=== PATIENT | female | born 1950 | race African-American/Black ===

== ENCOUNTER 2018-11-20 05:23 | Emergency (ER) | payer MEDICARE, MEDICAID ==
[~2018-11-20] VITALS: Ht 172.7 cm; Wt 44.0 kg
[2018-11-20 12:15] LABS: HEMATOCRIT. 44.1 % (36.0-48.0); HEMOGLOBIN. 14.6 g/dL (12.0-16.0); MEAN CORPUSCULAR HEMOGLOBIN 30.5 pg (28.0-32.0); MEAN CORPUSCULAR VOLUME 92.1 fL (81.0-99.0); MEAN PLATELET VOLUME 7.4 fl (7.4-10.4); PLATELET 510 x1000/uL (130-400); RED BLOOD CELL COUNT 4.79 mill/uL (4.2-5.4)
[2018-11-20 12:21] LABS: CHLORIDE 105 mEq/L (98-107)
[2018-11-20 12:22] LABS: PROTHROMBIN TIME 10.5 sec (9.1-11.1)
[2018-11-20 13:09] LABS: PLATELET ESTIMATE INCREASED
[2018-11-20 13:27] LABS: CLARITY URINE CLEAR (CLEAR); COLOR URINE DARK YELLOW (YELLOW); KETONES URINE TRACE (NEGATIVE); LEUKOCYTE ESTERASE URINE TRACE (NEGATIVE); NITRITE URINE NEGATIVE (NEGATIVE); OCCULT BLOOD URINE NEGATIVE (NEGATIVE); PROTEIN URINE TRACE (NEGATIVE); SPECIFIC GRAVITY URINE 1.026 (1.005-1.030)
[2018-11-20 14:05] LABS: CANNABINOID URINE SCREEN NEGATIVE (NEGATIVE); OPIATES URINE SCREEN NEGATIVE (NEGATIVE); PHENCYCLIDINE URINE SCREEN NEGATIVE (NEGATIVE)
[2018-11-20 14:07] LABS: *AMPHETAMINES SCREEN URINE NEGATIVE (NEGATIVE); *BARBITURATES SCREEN URINE NEGATIVE (NEGATIVE)
[2018-11-20 14:08] LABS: *BENZODIAZEPINES SCREEN URINE NEGATIVE (NEGATIVE)
[2018-11-20 14:09] LABS: *COCAINE SCREEN URINE NEGATIVE (NEGATIVE)
[2018-11-20 14:10] LABS: METHADONE URINE SCREEN NEGATIVE (NEGATIVE)
[2018-11-20 14:22] VITALS: BP 138/89
== END 2018-11-20 14:42 | disposition home or self-care (01) ==
LOC: ER 05:23
DX: R91.8 Other nonspecific abnormal finding of lung field (principal); R53.1 Weakness
CPT/HCPCS: 36415; 71045; 80053; 80305; 81003; 85025; 85610; 87086; 93005; 99284; G0482

== ENCOUNTER 2018-11-28 15:47 | Inpatient (IN) | payer MEDICARE, OTHER ==
[~2018-11-28] VITALS: Ht 172.7 cm; Wt 40.8 kg
[2018-11-28] VITALS (11 sets, daily range): BP systolic 119–154; BP diastolic 53–84
[2018-11-28] MEDS ORDERED: SODIUM CHLORIDE 0.9% 1,000 ML IV ONE (16:00)
[2018-11-28 16:59] LABS: HEMATOCRIT. 42.2 % (36.0-48.0); HEMOGLOBIN. 14.1 g/dL (12.0-16.0); MEAN CORPUSCULAR HEMOGLOBIN 30.5 pg (28.0-32.0); MEAN CORPUSCULAR VOLUME 91.1 fL (81.0-99.0); MEAN PLATELET VOLUME 7.4 fl (7.4-10.4); PLATELET 488 x1000/uL (130-400); RED BLOOD CELL COUNT 4.63 mill/uL (4.2-5.4); RED CELL DISTRIBUTION WIDTH 14.5 % (11.6-14.6)
[2018-11-28] MEDS ORDERED: LEVETIRACETAM 500MG PREMIX 100 ML IV ONE (17:00)
[2018-11-28] MEDS ORDERED: DEXAMETHASONE 10 MG/ML VIAL IV ONE (17:00)
[2018-11-28 17:05] LABS: CHLORIDE 103 mEq/L (98-107)
[2018-11-28 17:09] LABS: INR 1.1; PARTIAL THROMBOPLASTIN TIME 29.2 sec (23.4-31.0); PROTHROMBIN TIME 10.6 sec (9.1-11.1)
[2018-11-28 17:10] LABS: ETHANOL BLOOD < 10 mg/dL
[2018-11-28 17:14] LABS: CREATINE KINASE 44 IU/L (26-192)
[2018-11-28 17:45] LABS: *AMPHETAMINES SCREEN URINE NEGATIVE (NEGATIVE); *BARBITURATES SCREEN URINE NEGATIVE (NEGATIVE); *BENZODIAZEPINES SCREEN URINE NEGATIVE (NEGATIVE); *COCAINE SCREEN URINE NEGATIVE (NEGATIVE); METHADONE URINE SCREEN NEGATIVE (NEGATIVE)
[2018-11-28 17:46] LABS: CANNABINOID URINE SCREEN NEGATIVE (NEGATIVE); OPIATES URINE SCREEN NEGATIVE (NEGATIVE); PHENCYCLIDINE URINE SCREEN NEGATIVE (NEGATIVE)
[2018-11-28 19:52] LABS: PLATELET ESTIMATE INCREASED
[2018-11-28] MEDS ORDERED: NICARDIPINE 100 MG in SODIUM CHLORIDE 0.9% 60 ML IV PRN (20:30)
[2018-11-28] MEDS: DEXT 5%/LACTATED RINGERS 1,000 ML IV SCH (20:40)
[2018-11-28] MEDS: NICARDIPINE 100 MG in SODIUM CHLORIDE 0.9% 60 ML IV PRN (21:47)
[2018-11-28] MEDS: DEXAMETHASONE 4MG/ML 1ML VIAL IV SCH (23:27)
[2018-11-28] MEDS: LEVETIRACETAM 500 MG in SODIUM CHLORIDE 0.9% 100 ML IV SCH (23:27)
[2018-11-29] VITALS (62 sets, daily range): BP systolic 103–161; BP diastolic 42–111
[2018-11-29] MEDS: DEXAMETHASONE 4MG/ML 1ML VIAL IV SCH ×4 (05:26→23:56)
[2018-11-29] MEDS: NICARDIPINE 100 MG in SODIUM CHLORIDE 0.9% 60 ML IV PRN (07:30)
[2018-11-29] MEDS: LEVETIRACETAM 500 MG in SODIUM CHLORIDE 0.9% 100 ML IV SCH ×2 (08:30→20:26)
[2018-11-29] MEDS: FAMOTIDINE 20MG/2ML VIAL IV SCH ×2 (08:31→20:26)
[2018-11-29] MEDS: MORPHINE SULFATE 4 MG/ML CPJ (NOT FOR IM USE) IV PRN ×4 (08:32→20:03)
[2018-11-29] MEDS: RISPERIDONE 0.5MG TABLET PO SCH ×2 (09:00→16:21)
[2018-11-29] MEDS ORDERED: PIPERACILLIN/TAZOBACTAM 3.375GM/50ML PREMIX IV SCH (12:15)
[2018-11-29] MEDS: DEXT 5%/LACTATED RINGERS 1,000 ML IV SCH (13:10)
[2018-11-29] MEDS: PIPERACILLIN/TAZ 3.375G PREMIX 50 ML IV SCH ×2 (13:51→21:27)
[2018-11-29] MEDS ORDERED: KCL 20MEQ/100ML PREMIX 100 ML IV NR (16:30)
[2018-11-29] MEDS ORDERED: LEVETIRACETAM 500 MG in SODIUM CHLORIDE 0.9% 100 ML IV SCH (21:00)
[2018-11-30] VITALS (11 sets, daily range): BP systolic 102–166; BP diastolic 40–91
[2018-11-30] MEDS: LORAZEPAM 2MG/ML CPJ IV PRN ×2 (00:17→23:37)
[2018-11-30] MEDS: DEXAMETHASONE 4MG/ML 1ML VIAL IV SCH ×4 (05:40→23:55)
[2018-11-30] MEDS: PIPERACILLIN/TAZ 3.375G PREMIX 50 ML IV SCH ×2 (05:40→15:31)
[2018-11-30 05:50] LABS: BASOPHILS % 0.4 % (0.0-2.0); HEMATOCRIT. 40.3 % (36.0-48.0); HEMOGLOBIN. 13.2 g/dL (12.0-16.0); LYMPHOCYTES % 7.7 % (20.0-50.0); MEAN CORPUSCULAR VOLUME 91.4 fL (81.0-99.0); MEAN PLATELET VOLUME 7.6 fl (7.4-10.4); MONOCYTES % 5.5 % (2.0-8.0); NEUTROPHILS % 86.4 % (40.0-76.0); PLATELET 416 x1000/uL (130-400); RED BLOOD CELL COUNT 4.41 mill/uL (4.2-5.4); RED CELL DISTRIBUTION WIDTH 14.3 % (11.6-14.6)
[2018-11-30 05:53] LABS: CHLORIDE 108 mEq/L (98-107)
[2018-11-30] MEDS: RISPERIDONE 0.5MG TABLET PO SCH ×2 (09:00→17:00)
[2018-11-30] MEDS: LEVETIRACETAM 500 MG in SODIUM CHLORIDE 0.9% 100 ML IV SCH (09:48)
[2018-11-30] MEDS: FAMOTIDINE 20MG/2ML VIAL IV SCH ×2 (09:50→22:57)
[2018-11-30] MEDS: DEXT 5%/LACTATED RINGERS 1,000 ML IV SCH (22:57)
[2018-11-30] MEDS: MORPHINE SULFATE 4 MG/ML CPJ (NOT FOR IM USE) IV PRN (23:37)
[2018-12-01] VITALS: BP 165/81
[2018-12-01] MEDS ORDERED: PIPERACILLIN/TAZ 3.375G PREMIX 50 ML IV SCH
[2018-12-01] MEDS: LEVETIRACETAM 500 MG in SODIUM CHLORIDE 0.9% 100 ML IV SCH ×3 (03:25→21:15)
[2018-12-01 04:00] VITALS: BP 167/97
[2018-12-01] MEDS: DEXAMETHASONE 4MG/ML 1ML VIAL IV SCH ×3 (07:50→17:42)
[2018-12-01 08:00] VITALS: BP 132/92
[2018-12-01] MEDS: FAMOTIDINE 20MG/2ML VIAL IV SCH ×2 (08:56→21:16)
[2018-12-01] MEDS: RISPERIDONE 0.5MG TABLET PO SCH ×3 (08:56→16:05)
[2018-12-01] MEDS: LORAZEPAM 2MG/ML CPJ IV PRN ×2 (09:41→17:47)
[2018-12-01] MEDS: MORPHINE SULFATE 4 MG/ML CPJ (NOT FOR IM USE) IV PRN (11:39)
[2018-12-01 11:48] VITALS: BP 163/98
[2018-12-01] MEDS: AMLODIPINE 10MG TABLET PO SCH (12:45)
[2018-12-01 13:27] LABS: HEMATOCRIT. 41.2 % (36.0-48.0); HEMOGLOBIN. 13.7 g/dL (12.0-16.0); MEAN CORPUSCULAR HEMOGLOBIN 29.9 pg (28.0-32.0); MEAN CORPUSCULAR VOLUME 90.2 fL (81.0-99.0); PLATELET 532 x1000/uL (130-400); RED BLOOD CELL COUNT 4.57 mill/uL (4.2-5.4); RED CELL DISTRIBUTION WIDTH 14.5 % (11.6-14.6)
[2018-12-01 14:02] LABS: PLATELET ESTIMATE INCREASED
[2018-12-01 16:00] VITALS: BP 138/88
[2018-12-01] MEDS: DEXT 5%/LACTATED RINGERS 1,000 ML IV SCH (16:05)
[2018-12-01] MEDS: LEVOFLOXACIN 500MG PREMIX 100 ML IV SCH (17:48)
[2018-12-01] MEDS ORDERED: IOHEXOL-350 100 ML BOTTLE ONE (19:55)
[2018-12-01 20:00] VITALS: BP 144/88
[2018-12-02] VITALS: BP 137/82
[2018-12-02] MEDS: DEXAMETHASONE 4MG/ML 1ML VIAL IV SCH ×4 (01:00→17:10)
[2018-12-02] MEDS: DEXT 5%/LACTATED RINGERS 1,000 ML IV SCH (01:01)
[2018-12-02] MEDS: LORAZEPAM 2MG/ML CPJ IV PRN ×2 (04:54→10:37)
[2018-12-02 08:00] VITALS: BP 171/117
[2018-12-02] MEDS: RISPERIDONE 0.5MG TABLET PO SCH ×2 (09:00→17:00)
[2018-12-02] MEDS: AMLODIPINE 10MG TABLET PO SCH (09:03)
[2018-12-02] MEDS: FAMOTIDINE 20MG/2ML VIAL IV SCH ×2 (09:03→21:41)
[2018-12-02] MEDS: LEVETIRACETAM 500 MG in SODIUM CHLORIDE 0.9% 100 ML IV SCH ×2 (09:06→21:28)
[2018-12-02] MEDS ORDERED: HYDRALAZINE 10 MG in SODIUM CHLORIDE 0.9% 49.5 ML IV PRN (11:00)
[2018-12-02] MEDS ORDERED: HYDRALAZINE 20MG/ML VIAL IV PRN (11:00)
[2018-12-02 11:19] LABS: HEMATOCRIT. 43.1 % (36.0-48.0); HEMOGLOBIN. 14.5 g/dL (12.0-16.0); MEAN CORPUSCULAR VOLUME 89.2 fL (81.0-99.0); MEAN PLATELET VOLUME 7.7 fl (7.4-10.4); PLATELET 542 x1000/uL (130-400); RED BLOOD CELL COUNT 4.83 mill/uL (4.2-5.4); RED CELL DISTRIBUTION WIDTH 14.4 % (11.6-14.6)
[2018-12-02 11:23] LABS: CHLORIDE 101 mEq/L (98-107)
[2018-12-02 11:56] VITALS: BP 165/83
[2018-12-02 15:05] LABS: BG BASE EXCESS 3.4 mmol/L (-2.0-2.0); BG CARBOXYHEMOGLOBIN 0.4 % (0.5-1.5); BG DEOXYHEMOGLOBIN 2.5 % (0.0-5.0); BG FRACTION INSPIRED OXYGEN 21; BG HCO3 ACT 26.6 mmol/L (22.0-26.0); BG METHEMOGLOBIN 0.4 % (0.0-1.5); BG OXYGEN SATURATION 97.5 % (92.0-98.5); BG OXYHEMOGLOBIN 96.7 % (94.0-97.0); BG PH 7.486 (7.350-7.450); BG PO2 94.6 mmHg (75.0-100.0); BG SAMPLE SITE LEFT RADIAL; BG VENT MODE ROOM AIR
[2018-12-02 16:00] VITALS: BP 129/84
[2018-12-02] MEDS ORDERED: IPRATROPIUM/ALBUTEROL 0.5-3(2.5)MG/3ML NEB HHN PRN (16:45)
[2018-12-02] MEDS ORDERED: BISACODYL 10MG SUPP PR NR (17:00)
[2018-12-02 17:01] LABS: PLATELET ESTIMATE INCREASED
[2018-12-02] MEDS ORDERED: POTASSIUM CHLORIDE INJ 40 MEQ in DEXT 5% WATER 500 ML IV NR (18:00)
[2018-12-02] MEDS: PIPERACILLIN/TAZ 3.375G PREMIX 50 ML IV SCH (18:12)
[2018-12-02] MEDS ORDERED: LORAZEPAM 2MG/ML CPJ IV PRN (18:15)
[2018-12-02 20:00] VITALS: BP 169/107
[2018-12-03] VITALS: BP 146/101
[2018-12-03] MEDS: PIPERACILLIN/TAZ 3.375G PREMIX 50 ML IV SCH ×3 (00:44→11:36)
[2018-12-03] MEDS: DEXAMETHASONE 4MG/ML 1ML VIAL IV SCH ×4 (00:44→17:30)
[2018-12-03 04:00] VITALS: BP 150/93
[2018-12-03 08:00] VITALS: BP 124/80
[2018-12-03] MEDS: MULTIVITAMINS,THER W-MINERALS TABLET PO SCH (09:00)
[2018-12-03] MEDS: AMLODIPINE 10MG TABLET PO SCH (09:00)
[2018-12-03] MEDS: RISPERIDONE 0.5MG TABLET PO SCH ×2 (09:00→17:29)
[2018-12-03] MEDS: FOLIC ACID 1MG TABLET PO SCH (09:00)
[2018-12-03] MEDS: THIAMINE HCL 100MG TABLET PO SCH (09:00)
[2018-12-03] MEDS: FAMOTIDINE 20MG/2ML VIAL IV SCH ×2 (09:03→22:29)
[2018-12-03] MEDS: LEVETIRACETAM 500 MG in SODIUM CHLORIDE 0.9% 100 ML IV SCH ×2 (09:07→22:30)
[2018-12-03] MEDS: DEXT 5%/LACTATED RINGERS 1,000 ML IV SCH ×2 (09:07→17:30)
[2018-12-03 09:46] LABS: HEMATOCRIT 43.1 % (36.0-48.0); HEMOGLOBIN 14.5 g/dL (12.0-16.0); MEAN CORPUSCULAR HEMOGLOBIN 30.4 pg (28.0-32.0); PLATELET 531 x1000/uL (130-400); RED BLOOD CELL COUNT 4.79 mill/uL (4.2-5.4); RED CELL DISTRIBUTION WIDTH 14.5 % (11.6-14.6)
[2018-12-03 09:56] LABS: CHLORIDE 102 mEq/L (98-107)
[2018-12-03 12:00] VITALS: BP 132/85
[2018-12-03 16:00] VITALS: BP 117/72
[2018-12-03] MEDS: LEVOFLOXACIN 500MG PREMIX 100 ML IV SCH (17:29)
[2018-12-03 20:23] LABS: CLARITY URINE CLEAR (CLEAR); KETONES URINE NEGATIVE (NEGATIVE); LEUKOCYTE ESTERASE URINE NEGATIVE (NEGATIVE); NITRITE URINE NEGATIVE (NEGATIVE); OCCULT BLOOD URINE NEGATIVE (NEGATIVE); PROTEIN URINE NEGATIVE (NEGATIVE); SPECIFIC GRAVITY URINE 1.002 (1.005-1.030); UROBILINOGEN URINE 0.2 E.U./dL (0.2-1.0)
[2018-12-03 20:31] LABS: COLOR URINE PALE YELLOW (YELLOW)
[2018-12-04] VITALS: BP 147/82
[2018-12-04] MEDS: DEXAMETHASONE 4MG/ML 1ML VIAL IV SCH ×3 (00:51→11:30)
[2018-12-04 04:00] VITALS: BP 154/86
[2018-12-04 08:00] VITALS: BP 148/93
[2018-12-04] MEDS: MULTIVITAMINS,THER W-MINERALS TABLET PO SCH (09:19)
[2018-12-04] MEDS: AMLODIPINE 10MG TABLET PO SCH (09:19)
[2018-12-04] MEDS: FAMOTIDINE 20MG/2ML VIAL IV SCH (09:19)
[2018-12-04] MEDS: LEVETIRACETAM 500 MG in SODIUM CHLORIDE 0.9% 100 ML IV SCH (09:19)
[2018-12-04] MEDS: THIAMINE HCL 100MG TABLET PO SCH (09:19)
[2018-12-04] MEDS: FOLIC ACID 1MG TABLET PO SCH (09:19)
[2018-12-04] MEDS: RISPERIDONE 0.5MG TABLET PO SCH ×2 (09:19→16:44)
[2018-12-04] MEDS: DEXT 5%/LACTATED RINGERS 1,000 ML IV SCH (09:20)
[2018-12-04 12:00] VITALS: BP 124/73
[2018-12-04 12:39] VITALS: BP 132/82
[2018-12-04 16:00] VITALS: BP_SYST 141; BP_DIAS 80; BP_DIAS 90
[2018-12-05] MEDS ORDERED: DEXAMETHASONE 4MG/ML 1ML VIAL IV SCH
== END 2018-12-04 17:18 | DRG 54 ==
LOC: ER 15:47 → MICUSO 17:19 → EDBEDREQSVC 17:22 → EDBEDREQ 17:22 → EDBEDREQTM 17:22 → ENRESERV 18:41 → 6EST 11-30 06:40
PROVIDERS: ADMIT Internal Medicine; ATTEND Internal Medicine
DX: C79.31 Secondary malignant neoplasm of brain (principal); G93.6 Cerebral edema; J44.1 Chronic obstructive pulmonary disease with (acute) exacerbation; G93.40 Encephalopathy, unspecified; N39.0 Urinary tract infection, site not specified; C34.90 Malignant neoplasm of unspecified part of unspecified bronchus or lung; D68.59 Other primary thrombophilia; F10.20 Alcohol dependence, uncomplicated; R26.2 Difficulty in walking, not elsewhere classified; E87.6 Hypokalemia; E86.0 Dehydration; R79.89 Other specified abnormal findings of blood chemistry; R59.0 Localized enlarged lymph nodes; K59.00 Constipation, unspecified; B96.4 Proteus (mirabilis) (morganii) as the cause of diseases classified elsewhere; F17.200 Nicotine dependence, unspecified, uncomplicated; I10 Essential (primary) hypertension; R62.7 Adult failure to thrive; Z82.49 Family history of ischemic heart disease and other diseases of the circulatory system; Z86.73 Personal history of transient ischemic attack (TIA), and cerebral infarction without residual deficits; Z71.6 Tobacco abuse counseling; Z78.1 Physical restraint status
CPT/HCPCS: 36415; 36600; 71045; 71260; 74177; 80048; 80305; 82140; 82375; 82550; 82805; 83605; 83880; 84484; 85027; 87077; 87186; 92610; 93005; 93970; 96361; 96365; 96375; 97116; 97163; 97530; 99285; 99406; C1893; J0360; J1100; J1953; J1956; J2060; J2270; J2543; J3480; J3490; J7030; J7050; J7060; Q9967; A4315

== ENCOUNTER 2019-01-11 05:41 | Inpatient (IN) | payer MEDICARE, OTHER ==
[~2019-01-11] VITALS: Ht 170.2 cm; Wt 47.7 kg
[2019-01-11 06:23] LABS: BG BASE EXCESS -2.2 mmol/L (-2.0-2.0); BG BILEVEL POS AIRWAY PRESSURE 15/5; BG CARBOXYHEMOGLOBIN 0.5 % (0.5-1.5); BG DEOXYHEMOGLOBIN 0.5 % (0.0-5.0); BG FRACTION INSPIRED OXYGEN 100; BG HCO3 ACT 22.6 mmol/L (22.0-26.0); BG METHEMOGLOBIN 0.4 % (0.0-1.5); BG OXYGEN SATURATION 99.5 % (92.0-98.5); BG OXYHEMOGLOBIN 98.6 % (94.0-97.0); BG PCO2 39.2 mmHg (35.0-45.0); BG PH 7.379 (7.350-7.450); BG PO2 470.2 mmHg (75.0-100.0); BG SAMPLE SITE RIGHT BRACHIAL; BG TOTAL HEMOGLOBIN 13.3 g/dL (12.0-18.0); BG VENT MODE MASK - BIPAP; BG VENT RATE 14 set
[2019-01-11] MEDS ORDERED: CEFTRIAXONE 1 G PREMIX 50 ML IV ONE (06:30)
[2019-01-11] MEDS ORDERED: AZITHROMYCIN 500 MG in DEXT 5% WATER 250 ML IV ONE (06:30)
[2019-01-11 06:41] LABS: BASOPHILS % 0.6 % (0.0-2.0); EOSINOPHILS % 0.6 % (0.0-5.0); HEMATOCRIT. 35.3 % (36.0-48.0); HEMOGLOBIN. 11.6 g/dL (12.0-16.0); LYMPHOCYTES % 14.2 % (20.0-50.0); MEAN CORPUSCULAR HEMOGLOBIN 28.9 pg (28.0-32.0); MEAN CORPUSCULAR VOLUME 88.1 fL (81.0-99.0); MEAN PLATELET VOLUME 6.7 fl (7.4-10.4); MONOCYTES % 7.4 % (2.0-8.0); NEUTROPHILS % 77.2 % (40.0-76.0); PLATELET 552 x1000/uL (130-400); RED CELL DISTRIBUTION WIDTH 14.2 % (11.6-14.6)
[2019-01-11 06:44] LABS: CHLORIDE 105 mEq/L (98-107)
[2019-01-11 06:45] LABS: INR 1.1; PROTHROMBIN TIME 10.9 sec (9.1-11.1)
[2019-01-11] MEDS ORDERED: SODIUM CHLORIDE 0.9% 1000ML BAG (SEPSIS BOLUS) IV ONE (07:00)
[2019-01-11 08:27] LABS: CLARITY URINE CLOUDY (CLEAR); COLOR URINE YELLOW (YELLOW); KETONES URINE NEGATIVE (NEGATIVE); LEUKOCYTE ESTERASE URINE NEGATIVE (NEGATIVE); NITRITE URINE NEGATIVE (NEGATIVE); OCCULT BLOOD URINE 1+ (NEGATIVE); PH URINE 5.5 (4.5-8.0); PROTEIN URINE TRACE (NEGATIVE); SPECIFIC GRAVITY URINE 1.026 (1.005-1.030)
[2019-01-11] MEDS ORDERED: ACETAMINOPHEN 650MG SUPP PR ONE (11:45)
[2019-01-11] MEDS ORDERED: IOHEXOL-350 100 ML BOTTLE ONE (11:49)
[2019-01-11] MEDS ORDERED: DEXTROSE 50% WATER 50ML SYRINGE IV PRN (21:45)
[2019-01-11] MEDS ORDERED: IPRATROPIUM/ALBUTEROL 0.5-3(2.5)MG/3ML NEB HHN PRN (21:45)
[2019-01-11] MEDS ORDERED: ACETAMINOPHEN 650MG SUPP PR PRN (21:45)
[2019-01-11] MEDS ORDERED: ONDANSETRON HCL 4MG/2ML INJ IV PRN (21:45)
[2019-01-11] MEDS ORDERED: LEVOFLOXACIN 500MG PREMIX 100 ML IV SCH (21:45)
[2019-01-12 04:26] LABS: BASOPHILS % 0.5 % (0.0-2.0); EOSINOPHILS % 0.3 % (0.0-5.0); HEMATOCRIT. 30.9 % (36.0-48.0); HEMOGLOBIN. 10.2 g/dL (12.0-16.0); LYMPHOCYTES % 9.7 % (20.0-50.0); MEAN CORPUSCULAR VOLUME 88.3 fL (81.0-99.0); MEAN PLATELET VOLUME 6.9 fl (7.4-10.4); MONOCYTES % 6.8 % (2.0-8.0); NEUTROPHILS % 82.7 % (40.0-76.0); PLATELET 444 x1000/uL (130-400)
[2019-01-12 04:33] LABS: CHLORIDE 106 mEq/L (98-107)
[2019-01-12 04:41] LABS: PHOSPHORUS 3.4 mg/dL (2.5-4.9)
[2019-01-12] MEDS ORDERED: INSULIN LISPRO 100 UNITS/ML SUBCUT SCH (08:20)
[2019-01-12] MEDS: PANTOPRAZOLE SODIUM 40 MG/VIAL IV SCH (09:00)
[2019-01-12 14:37] LABS: *COCAINE SCREEN URINE NEGATIVE (NEGATIVE); METHADONE URINE SCREEN NEGATIVE (NEGATIVE); OPIATES URINE SCREEN NEGATIVE (NEGATIVE)
[2019-01-12 14:38] LABS: *AMPHETAMINES SCREEN URINE NEGATIVE (NEGATIVE); *BARBITURATES SCREEN URINE NEGATIVE (NEGATIVE); *BENZODIAZEPINES SCREEN URINE NEGATIVE (NEGATIVE); CANNABINOID URINE SCREEN NEGATIVE (NEGATIVE); PHENCYCLIDINE URINE SCREEN NEGATIVE (NEGATIVE)
[2019-01-12 17:00] VITALS: BP 121/69
[2019-01-12] MEDS ORDERED: LEVOFLOXACIN 500MG PREMIX 100 ML IV SCH (17:00)
[2019-01-12 18:00] VITALS: BP 121/69
[2019-01-12 20:00] VITALS: BP 117/65
[2019-01-12] MEDS: DEXT 5%/0.45% NACL 1000ML 1,000 ML IV SCH (20:28)
[2019-01-12] MEDS: BLOOD SUGAR DIAGNOSTIC STRIP TEST SCH (21:00)
[2019-01-12] MEDS: INSULIN LISPRO 100 UNITS/ML SUBCUT SCH (21:00)
[2019-01-12] MEDS: LEVOFLOXACIN 500MG PREMIX 100 ML IV SCH (21:10)
[2019-01-12 22:00] VITALS: BP 121/63
[2019-01-13] VITALS (12 sets, daily range): BP systolic 102–144; BP diastolic 55–85
[2019-01-13 06:20] LABS: CHLORIDE 106 mEq/L (98-107)
[2019-01-13 06:49] LABS: BASOPHILS % 0.4 % (0.0-2.0); EOSINOPHILS % 1.1 % (0.0-5.0); HEMATOCRIT. 33.8 % (36.0-48.0); HEMOGLOBIN. 10.9 g/dL (12.0-16.0); LYMPHOCYTES % 15.7 % (20.0-50.0); MEAN CORPUSCULAR HEMOGLOBIN 29.2 pg (28.0-32.0); MEAN CORPUSCULAR VOLUME 90.5 fL (81.0-99.0); MONOCYTES % 9.2 % (2.0-8.0); NEUTROPHILS % 73.6 % (40.0-76.0); RED BLOOD CELL COUNT 3.73 mill/uL (4.2-5.4); RED CELL DISTRIBUTION WIDTH 14.5 % (11.6-14.6)
[2019-01-13] MEDS: BLOOD SUGAR DIAGNOSTIC STRIP TEST SCH ×4 (07:30→21:00)
[2019-01-13] MEDS: INSULIN LISPRO 100 UNITS/ML SUBCUT SCH ×4 (08:00→21:42)
[2019-01-13] MEDS: PANTOPRAZOLE SODIUM 40 MG/VIAL IV SCH (09:00)
[2019-01-13 10:09] LABS: MEAN PLATELET VOLUME 8.1 fl (7.4-10.4); PLATELET 461 x1000/uL (130-400)
[2019-01-13] MEDS ORDERED: HYDROCODONE/ACETAMINOPHEN 5/325MG TABLET PO PRN (11:45)
[2019-01-13] MEDS: DEXT 5%/0.45% NACL 1000ML 1,000 ML IV SCH (14:21)
[2019-01-13] MEDS ORDERED: DIPHENHYDRAMINE 50MG/ML VIAL IV PRN (18:15)
[2019-01-13] MEDS: LEVOFLOXACIN 500MG PREMIX 100 ML IV SCH (20:17)
[2019-01-14] VITALS (11 sets, daily range): BP systolic 130–153; BP diastolic 70–96
[2019-01-14] MEDS: DEXT 5%/0.45% NACL 1000ML 1,000 ML IV SCH ×2 (02:57→16:10)
[2019-01-14 06:23] LABS: CHLORIDE 105 mEq/L (98-107)
[2019-01-14 06:37] LABS: HEMATOCRIT 33.3 % (36.0-48.0); HEMOGLOBIN 11.1 g/dL (12.0-16.0); MEAN CORPUSCULAR HEMOGLOBIN 29.2 pg (28.0-32.0); MEAN CORPUSCULAR VOLUME 87.6 fL (81.0-99.0); PLATELET 453 x1000/uL (130-400)
[2019-01-14] MEDS: BLOOD SUGAR DIAGNOSTIC STRIP TEST SCH ×4 (07:30→21:30)
[2019-01-14] MEDS: INSULIN LISPRO 100 UNITS/ML SUBCUT SCH ×4 (08:00→21:00)
[2019-01-14] MEDS: PANTOPRAZOLE SODIUM 40 MG/VIAL IV SCH (09:00)
[2019-01-14] MEDS: IPRATROPIUM/ALBUTEROL 0.5-3(2.5)MG/3ML NEB HHN SCH ×2 (15:17→20:39)
[2019-01-14] MEDS ORDERED: FAMO20TA8 MT (15:42)
[2019-01-14] MEDS ORDERED: FOLI-43 MT (15:42)
[2019-01-14] MEDS ORDERED: ZOLP5TAB8 MT (15:42)
[2019-01-14] MEDS ORDERED: LEVE500T78 MT (15:43)
[2019-01-14] MEDS ORDERED: RISP05 MT (15:46)
[2019-01-14] MEDS ORDERED: AMLO10TA80 MT (15:46)
[2019-01-14] MEDS ORDERED: IPRATROPIUM/ALBUTEROL 0.5-3(2.5)MG/3ML NEB HHN SCH (18:00)
[2019-01-14] MEDS: LEVOFLOXACIN 500MG PREMIX 100 ML IV SCH (19:15)
[2019-01-15] VITALS: BP 142/86
[2019-01-15 04:00] VITALS: BP 124/79
[2019-01-15] MEDS: DEXT 5%/0.45% NACL 1000ML 1,000 ML IV SCH (06:33)
[2019-01-15] MEDS: BLOOD SUGAR DIAGNOSTIC STRIP TEST SCH ×2 (07:55→11:58)
[2019-01-15] MEDS: INSULIN LISPRO 100 UNITS/ML SUBCUT SCH ×2 (07:56→11:58)
[2019-01-15 08:00] VITALS: BP 131/76
[2019-01-15] MEDS: PANTOPRAZOLE SODIUM 40 MG/VIAL IV SCH (08:34)
[2019-01-15] MEDS: IPRATROPIUM/ALBUTEROL 0.5-3(2.5)MG/3ML NEB HHN SCH ×2 (08:39→13:30)
[2019-01-15 12:00] VITALS: BP 116/89
[2019-01-15 12:30] VITALS: BP 163/90
[2019-01-15 15:47] VITALS: BP 122/80
== END 2019-01-15 16:15 | disposition hospice, inpatient (51) | DRG 871 ==
LOC: ER 05:41 → EDBEDREQ 07:55 → EDBEDREQSVC 07:55 → 5EST 01-12 07:55 → ENRESERV 01-12 15:37
PROVIDERS: ADMIT Internal Medicine; ATTEND Internal Medicine
PROC: 5A09357 Assistance with Respiratory Ventilation, Less than 24 Consecutive Hours, Continuous Positive Airway Pressure (ICD-10-PCS; 2019-01-11)
PROC: 5A09357 Assistance with Respiratory Ventilation, Less than 24 Consecutive Hours, Continuous Positive Airway Pressure (ICD-10-PCS; principal; 2019-01-12)
DX: A41.9 Sepsis, unspecified organism (principal); J96.00 Acute respiratory failure, unspecified whether with hypoxia or hypercapnia; E43 Unspecified severe protein-calorie malnutrition; G93.40 Encephalopathy, unspecified; C79.31 Secondary malignant neoplasm of brain; D68.59 Other primary thrombophilia; N28.0 Ischemia and infarction of kidney; N39.0 Urinary tract infection, site not specified; Z68.1 Body mass index [BMI] 19.9 or less, adult; Z51.5 Encounter for palliative care; D64.9 Anemia, unspecified; E11.9 Type 2 diabetes mellitus without complications; Z66 Do not resuscitate; J44.9 Chronic obstructive pulmonary disease, unspecified; I11.0 Hypertensive heart disease with heart failure; F03.90 Unspecified dementia, unspecified severity, without behavioral disturbance, psychotic disturbance, mood disturbance, and anxiety; Z85.841 Personal history of malignant neoplasm of brain
CPT/HCPCS: 36415; 36600; 71045; 71275; 80048; 80305; 82375; 82805; 82962; 83036; 83605; 83735; 83880; 84100; 84484; 85027; 92610; 93005; 93970; 94660; 96374; 97162; 99285; C9113; J0456; J0696; J1815; J1956; J7030; J7060; J7620; Q9967